=== PATIENT | female | born 1985 | race Two or more races ===

== ENCOUNTER 2024-05-21 14:53 | Emergency (ER) | payer OTHER ==
[~2024-05-21] VITALS: Ht 167.6 cm; Wt 69.9 kg
[2024-05-21] MEDS ORDERED: ZYRTEC10 MG PO (19:00)
== END 2024-05-21 19:25 | disposition home or self-care (01) ==
LOC: ER 14:55
DX: R21 Rash and other nonspecific skin eruption (principal)